=== PATIENT | male | born 2000 | race Two or more races ===

== ENCOUNTER 2025-09-12 04:17 | Emergency (ER) | payer SELFPAY ==
[~2025-09-12] VITALS: Ht 180.3 cm; Wt 77.0 kg
[2025-09-12 04:30] VITALS: O2SAT 97
[2025-09-12] MEDS ORDERED: TOPUD PO (06:59)
[2025-09-12 07:09] VITALS: BP 138/75; PULSE 93; RESP 14; TEMP 36.7; O2SAT 100
== END 2025-09-12 07:12 | disposition home or self-care (01) ==
LOC: ER 04:17
DX: M79.605 Pain in left leg (principal); Z91.010 Allergy to peanuts
CPT/HCPCS: 73560; 93971; 99284